=== PATIENT | female | born 1935 ===

== ENCOUNTER → 2020-10-25 15:19 | Outpatient (REF) | payer MEDICARE, SELFPAY | LOC: ANHLAB 15:19 | PROVIDERS: Visit Provider Surgery Plastic and Reconstructive Surgery | DX: D03.39 Melanoma in situ of other parts of face (principal) | CPT/HCPCS: 88305; 88342 ==

== ENCOUNTER → 2020-11-14 10:55 | Outpatient (REF) | payer MEDICARE, SELFPAY | LOC: ANHLAB 10:55 | PROVIDERS: Visit Provider Surgery Plastic and Reconstructive Surgery | DX: D03.30 Melanoma in situ of unspecified part of face (principal) | CPT/HCPCS: 88305 ==